=== PATIENT | female | born 1990 | race Caucasian/White ===

== ENCOUNTER 2022-06-15 17:50 | Emergency (ER) | payer OTHER, SELFPAY ==
--- NOTE | 2022-06-15 17:57 | ED.EXTPRO ---
HPI - Extremity Problem General Chief complaint: Extremity Problem,Nontraumatic Stated complaint: left foot has knot on side Source: patient and RN notes reviewed History of Present Illness HPI Narrative: 32-year-old female presents to urgent care with complaints of pain and swelling to the bottom of her left foot. Patient states she noticed it today while at work and felt something poking the bottom of her foot. Patient got she off and noticed there was a lot like a bump on the bottom of her foot with a garcia. Patient denies any injuries. Denies any drainage from the area. Denies any fevers or chills. Some parts of this dictation were generated by voice recognition software and may contain typographical and/or grammatical inaccuracies. Related Data Home Medications Medication Instructions Recorded Confirmed ascorbic acid (vitamin C) 500 mg 06/15/22 tablet (Vitamin C) ferrous sulfate 325 mg (65 mg mg 06/15/22 iron) tablet (FeroSul) lisinopril 06/15/22 progesterone micronized 200 mg mg 06/15/22 capsule sertraline 50 mg tablet mg 06/15/22 Allergies Allergy/AdvReac Type Severity Reaction Status Date / Time No Known Allergies Allergy Verified 06/15/22 18:06 Review of Systems Review of Systems: CONSTITUTIONAL: Denies fever, chills, or sweats. EYES: Denies visual changes, redness, or discharge. ENT: Denies otalgia and sore throat CARDIOVASCULAR: Denies chest pain, palpitations, or edema. RESPIRATORY: Denies cough or dyspnea. GASTROINTESTINAL: Denies abdominal pain, nausea, vomiting, or diarrhea. GENITOURINARY: Denies dysuria or hematuria. SKIN: garcia to bottom of left foot MUSCULOSKELETAL: Denies back pain, joint pain, or myalgia. NEUROLOGIC: Denies headache, numbness, or weakness. PMFSH Comments At the time of my signature, I reviewed and agree with the nursing past medical, surgical, social, and family history. There is no relevant family history pertinent to the patient complaint. Exam Narrative: GENERAL: This is a well-nourished, well-developed patient, in no apparent distress. HEAD: normocephalic, atraumatic. EYES: Sclera clear/white. Vision is grossly intact. EARS: External ears normal, auditory canals clear and without drainage, TMs normal without perforation. Hearing grossly intact. NOSE: External nose normal with no obvious nasal discharge, nares without redness, no rhinorrhea. THROAT: Mucous membranes moist, posterior pharynx clear. NECK: Neck supple, non-tender without lymphadenopathy, masses or thyromegaly. CARDIOVASCULAR: Regular rate RESPIRATORY: No respiratory distress noted SKIN: 1 cm area of swelling to plantar side of left foot with white head. no area of induration or significant erythrema. NEURO: awake, alert, and oriented to person, place and time. There were no obvious focal neurologic abnormalities. Course Course Level of Care: Express Care Visit Vital Signs Vital signs: Vital Signs Temperature 98.4 F 06/15/22 18:05 Pulse Rate 105 H 06/15/22 18:05 Respiratory Rate 16 06/15/22 18:05 Blood Pressure 162/87 H 06/15/22 18:05 Pulse Oximetry 100 06/15/22 18:05 Oxygen Delivery Room Air 06/15/22 18:05 Temperature 98.4 F 06/15/22 18:05 Pulse Rate 105 H 06/15/22 18:05 Respiratory Rate 16 06/15/22 18:05 Blood Pressure 162/87 H 06/15/22 18:05 Pulse Oximetry 100 06/15/22 18:05 Oxygen Delivery Room Air 06/15/22 18:05 Reviewed MDM - Extremity (Nontraumatic) MDM Narrative Medical decision making narrative: Apply a warm compress to the area at least 3x/day for [address] the antibiotic ointment on 2x/day. keep the area clean and dry. Follow up with cyber reverse engineer if symptoms persist after 1 week. Go to the ER with any new or worsening symptoms. Differential Diagnosis Differential diagnosis: Likely other (abscess, cellulitis, cyst) Critical Care Time Critical Care Time Critical Care Time: No Discharge Plan
[2022-06-15 18:05] VITALS: BP 162/87; PULSE 105; RESP 16; TEMP 36.9; O2SAT 100
== END 2022-06-15 18:17 | disposition home or self-care (01) ==
PROVIDERS: Emergency Provider Nurse Practitioner Family; PCP Nurse Practitioner Family
DX: L02.612 Cutaneous abscess of left foot (principal)
CPT/HCPCS: 99213; G0463

== ENCOUNTER 2022-07-05 10:47 | Outpatient (CLI) | payer OTHER, SELFPAY ==
[2022-07-05 11:23] LABS: Hemoglobin 11.6 g/dL (12.0-15.0)
== END 2022-07-05 10:48 | disposition home or self-care (01) ==
LOC: ANHSURGERY 10:52
PROVIDERS: Anesthesiology; PCP Nurse Practitioner Family; Visit Provider Obstetrics & Gynecology
DX: D64.9 Anemia, unspecified (principal); Z01.818 Encounter for other preprocedural examination
CPT/HCPCS: 36415; 85014; 85018

== ENCOUNTER 2022-07-07 00:33 | Day surgery (SDC) | payer OTHER, SELFPAY ==
[2022-06-28 14:59] VITALS: BMI 57.8
--- NOTE | 2022-06-28 15:03 | PC.NURSE ---
Report to the Outpatient Waiting Room, entrance under the green pavilion located off [facility], at time 7:30 on date 07/07/22. Planned Procedure Time: 9:30. Time changes happen often and if your time is changed the preop area will call you the afternoon before. - You and your visitor will be asked to self-screen and do not enter if you have any COVID symptoms. - Only one visitor is requested with a max of two and NO children visitors are allowed at this time. - The patient visitor may be requested to leave or wait in car when not with patient due to distancing restrictions. - A mask is optional within the hospital at this time. Patients may have clear liquids (water, carbonated beverages, clear teas, apple juice) until 3 hours prior to surgery (6:30) with a maximum of 20 ounces. - No food from midnight until time of surgery Take the following medications with a SIP of water the morning of surgery: INHALER IF NEEDED DO NOT STOP ANY OF YOUR OTHER PRESCRIPTION MEDICATIONS PRIOR TO SURGERY EXCEPT THE FOLLOWING Medications to discontinue per physician: VITAMINS/SUPPLEMENTS Date to take last dose: 07/03/22 Please no make-up, nail chinese, hairspray, perfume, deodorant, or body powder the day of surgery. No jewelry (including any body piercings) or valuables the day of surgery, leave them at home. Please take a shower or bath the night before, or the morning of, surgery with an antibacterial soap. Wear comfortable, loose fitting clothing. - Jewelry must be removed prior to entering the operating room. Rings and piercings that are not removed may be cut off. - The hospital will not accept responsibility for valuables. - Please leave all valuables, including medications, at home the day of surgery. If you are going home after surgery, a licensed experienced truck driver must drive you home. - NO public transportation without another adult if you receive anesthesia. - We recommend that an adult stay with you for 24 hours following discharge. - We also recommend that you do not drive, make important decision, drink alcoholic beverages, or take any drugs that were not prescribed by your health care provider for at least 24 hours after your discharge time. Follow any additional instructions given to you from your surgeon. If you or anyone in your household have experienced Covid symptoms in the past week, please notify your surgeon or the nurse liaison at the phone number below for possible testing. Telephone instructions given to ARLYN - WASHINGTON LOPEZ and asked if any additional questions and then verbalized understanding. Patient advised to call surgeon office or pre surgery nurse liaison [phone] if any additional questions.
[2022-07-07] MEDS: ACETAMINOPHEN 500 MG TABLET 1000 MG PO (08:00)
[2022-07-07] MEDS: LACTATED RINGERS 1,000 ML 30 ML IV CONT ×2 (08:00→11:00)
[2022-07-07 09:00] VITALS: BP 135/80; PULSE 96; RESP 16; TEMP 37.6; O2SAT 100
--- NOTE | 2022-07-07 09:08 | WPDANESEPPF ---
Anes - Initial Pre Proc Eval Procedure: Operation Date: 07/07/22 09:30 Proposed Procedures p Hysteroscopy with Endometrial Biopsy and/or Polypectomy - Roula Holden MD Date/Time: 07/07/22 09:08 Surgeon: Roula Holden MD Pre Op Diagnosis: lesion of endometrium Patient Data Age: 32 Gender: F Height: 1.52 m Weight: 134.3 kg Allergies Allergy/AdvReac Type Severity Reaction Status Date / Time No Known Allergies Allergy Verified 06/28/22 14:56 Home Medications Medication Instructions Recorded Confirmed Type albuterol sulfate 90 mcg/actuation 1 puff inhalation QID PRN 06/28/22 06/28/22 History aerosol inhaler Bronchospasm ascorbic acid (vitamin C) 500 mg 500 mg PO DAILY 06/28/22 06/28/22 History tablet esomeprazole magnesium 40 mg 40 mg PO DAILY 06/28/22 06/28/22 History capsule,delayed release ferrous sulfate 325 mg (65 mg 325 mg PO DAILY 06/28/22 06/28/22 History iron) tablet lisinopril 10 mg tablet 10 mg PO DAILY 06/28/22 06/28/22 History progesterone micronized 200 mg 200 mg PO HS 06/28/22 06/28/22 History capsule Patient hx anesthesia problems: none Family hx anesthesia problems: none Results Review: All pre-operative results and documents have been reviewed as part of the pre-operative evaluation. [facility] Social History Social History (System 06/28/22 @ 13:50 by Rima Brantley) Smoking status: Never smoker Alcohol intake: current Alcohol use details: RARE Substance use: current Substance use type: marijuana Other substance usage details: RARE Living arrangements: with family Spiritual care concerns: No Anes - Eval Final PreProcedure Day of Procedure 07/07/22 09:08 Patient weight: super morbidly obese Heart: regular rate and rhythm Lungs: clear to auscultation Airway: Mallampati scale class III Neurological: alert and oriented Last oral intake: >/= 8 hours ASA classification: III Emergent: no Anesthetic plan: proceed Anesthesia type and monitoring: general GIVS (may use LMA if needed) Results Review: All pre-operative results and documents have been reviewed as part of the pre-operative evaluation. Informed Consent: The patient's anesthetic plan and its attendant risks and benefits were discussed with the patient/family/POA. Questions were solicited and answers provided to the satisfaction of the patient/family/POA.
--- NOTE | 2022-07-07 09:39 | PM.IMHP ---
H&P: HPI History of Present Illness Date/Time: 07/07/22 09:39 Chief Complaint: Abnormal uterine bleeding Narrative: 32-year-old female with abnormal uterine bleeding and endometrial lesion. We have agreed to perform hysteroscopy D and C with possible polypectomy. She understands that injuries may occur no surgery. Injuries may result in hospitalization, more surgery, severe illness. She understands risk of infection and hemorrhage. Review of Systems Review of Systems: All systems reviewed & are unremarkable except as noted in HPI and below Constitutional: Constitutional: Denies chills, Denies fatigue, Denies fever(s) and Denies weakness Eyes: Eyes: Denies blurry vision, Denies change in vision, Denies loss of peripheral vision, Denies loss of vision, Denies other visual disturbances and Denies eye pain ENT: Denies vertigo, Denies dizziness, Denies hearing loss, Denies mouth pain, Denies nasal obstruction, Denies neck mass and Denies neck pain Cardiovascular: Cardiovascular: Denies chest pain, Denies diaphoresis, Denies syncope, Denies leg edema and Denies dyspnea Respiratory: Respiratory: Denies chest congestion, Denies cough, Denies hemoptysis, Denies dyspnea and Denies wheezing Gastrointestinal: Gastrointestinal: Denies abdominal pain, Denies constipation, Denies diarrhea, Denies nausea and Denies vomiting Genitourinary: Genitourinary: Denies hematuria, Denies change in libido, Denies nocturia, Denies genital lesions, Denies flank pain and Denies urinary urgency Musculoskeletal: Musculoskeletal: Denies abnormal gait, Denies back pain, Denies myalgias, Denies arthralgias, Denies joint swelling, Denies muscle weakness and Denies neck pain Integumentary/Breasts: Skin/Breast: Denies swelling, Denies breast pain, Denies breast mass, Denies dry skin, Denies nipple discharge, Denies unusual bruising and Denies jaundice Neurologic: Denies Neuro-related abnormal movements, Denies Abnormal speech present, Denies abnormal gait, Denies behavioral changes, Denies confusion, Denies vertigo, Denies dizziness, Denies syncope, Denies loss of vision, Denies memory loss, Denies convulsions and Denies weakness Psychiatric: Psychiatric: Denies abnormal sleep pattern, Denies behavioral changes, Denies change in libido, Denies confusion, Denies depression, Denies anhedonia and Denies memory loss Endocrine: Endocrine: Reports no additional endocrine complaints, Denies change in libido and Denies fatigue Hematologic/Lymphatic: Hematologic/Lymphatic: Reports no additional hematologic/lymphatic complaints Allergic/Immunologic: Allergic/Immunologic: Reports no additional allergic/immunologic complaints and Denies wheezing PENDING SALE TO [facility] Past Medical History Medical History (Updated 07/07/22 @ 09:41 by Roula Holden MD) Asthma GERD (gastroesophageal reflux disease) Hypertension Social History Social History (System 06/28/22 @ 13:50 by Rima Brantley) Smoking status: Never smoker Alcohol intake: current Alcohol use details: RARE Substance use: current Substance use type: marijuana Other substance usage details: RARE Living arrangements: with family Spiritual care concerns: No Meds Home Medications and Allergies Home Medications Medication Instructions Recorded Confirmed Type albuterol sulfate 90 mcg/actuation 1 puff inhalation QID PRN 06/28/22 06/28/22 History aerosol inhaler Bronchospasm ascorbic acid (vitamin C) 500 mg 500 mg PO DAILY 06/28/22 06/28/22 History tablet esomeprazole magnesium 40 mg 40 mg PO DAILY 06/28/22 06/28/22 History capsule,delayed release ferrous sulfate 325 mg (65 mg 325 mg PO DAILY 06/28/22 06/28/22 History iron) tablet lisinopril 10 mg tablet 10 mg PO DAILY 06/28/22 06/28/22 History progesterone micronized 200 mg 200 mg PO HS 06/28/22 06/28/22 History capsule Allergies Allergy/AdvReac Type Severity Reaction Status Date / Time No Known Allergies Allergy Verified 06/28/22
--- NOTE | 2022-07-07 09:41 | WPDHPUPDATE1 ---
History and Physical Update Update Date/Time: 07/07/22 09:41 History and Physical has been reviewed, including an updated exam of the patient. There are NO changes in the patient's condition. Risks, benefits, and alternatives have been discussed and questions answered. Patient agrees to proceed with procedure.
[2022-07-07] MEDS: LIDOCAINE HCL 1% LOCAL INJ 10 ML VIAL INFILTRATE (09:48)
--- NOTE | 2022-07-07 10:23 | P.OP_ITS ---
Procedure Note - Detailed Date of Procedure 07/07/22 Pre-op Diagnosis lesion of endometrium Post-op Diagnosis Other ( endocervical lesion, cystic) Procedure Performed Hysteroscopy D&C, resection of endocervical lesion Surgeon Roula Holden MD Anesthesia MAC Indications abnormal uterine bleeding Findings endocervical cystic lesion anteriorly and posteriorly, small, benign- appearing:normal appearing vulva, vagina, cervix, intrauterine cavity Description of Procedure the patient was taken the operating room. She was prepped and draped in the dorsal lithotomy position after induction of mac anesthesia. A speculum was placed in the vagina. The cervix was grasped with a tenaculum. The cervix was dilated about 1 cm. The hysteroscope was inserted. The intrauterine cavity and endocervix were evaluated. Hysteroscope was withdrawn. endocervical curettage was performed with a small curette, A medium-size curette was used to curettage all the surfaces were within the endometrial cavity. the sample was collected on Telfa and sent to pathology. The hysteroscope was reinserted and the above findings were noted. endocervical cyst does not yet been removed at this point, cutting blade was inserted to remove the intracervical abnormal structures. It was used to resect them. It was hemostatic. Samples were sent to the pathology department. Patient tolerated the procedure well. The speculum and tenaculum were removed. She was taken recovery room in stable condition. Sponge lap and needle counts were correct x2. Estimated Blood Loss 40 Drains No Packing No Pathology Yes Complications No immediate complications Condition Stable Disposition PACU
[2022-07-07 10:30] VITALS: BP 116/96; PULSE 81; RESP 17; TEMP 37.2; O2SAT 100
[2022-07-07 10:45] VITALS: BP 121/76; PULSE 86; RESP 20; O2SAT 95
[2022-07-07 11:00] VITALS: BP 121/73; PULSE 83; RESP 18; O2SAT 97
[2022-07-07] MEDS: fentaNYL CITRATE INJ (*CRX) 100 MCG/2 ML VIAL 25 MCG IV PUSH ×2 (11:00→11:03)
[2022-07-07 11:10] VITALS: BP 139/83; PULSE 78; RESP 16
[2022-07-07 11:40] VITALS: BP 135/69; PULSE 83; RESP 16
== END 2022-07-07 12:05 | disposition home or self-care (01) ==
PROVIDERS: PCP Nurse Practitioner Family; Visit Provider Obstetrics & Gynecology
PROC: 0U5B8ZZ Destruction of Endometrium, Via Natural or Artificial Opening Endoscopic (ICD-10-PCS; CPT 58563; principal; 2022-07-07 09:30)
DX: N84.0 Polyp of corpus uteri (principal); J45.909 Unspecified asthma, uncomplicated; I10 Essential (primary) hypertension; K21.9 Gastro-esophageal reflux disease without esophagitis; Z79.51 Long term (current) use of inhaled steroids; F12.90 Cannabis use, unspecified, uncomplicated; E66.01 Morbid (severe) obesity due to excess calories; Z68.43 Body mass index [BMI] 50.0-59.9, adult
CPT/HCPCS: 58558; 36415; 85014; 85018; 88305; A9270; J1100; J2250; J2405; J2704; J3010; J7120

== ENCOUNTER 2024-03-19 16:25 | Emergency (ER) | payer OTHER, SELFPAY ==
[2024-03-19 16:42] VITALS: BP 137/89; PULSE 85; RESP 20; TEMP 36.2
[2024-03-19 17:04] LABS: BEDSIDEPREGUCG Negative (Negative); EDCOVIDSCREEN Negative (Negative); EDINFLUASCREEN Negative (Negative); EDINFLUBSCREEN Negative (Negative); EDSTREPNEGPOS1 Negative (Negative)
--- NOTE | 2024-03-19 17:16 | ED_ITS ---
HPI - Nausea/Vomiting/Diarrhea General Chief complaint: Nausea/Vomiting/Diarrhea Stated complaint: nausea/diarrhea/throat/achey Time Seen by Provider: 03/19/24 16:50 Source: patient Mode of arrival: ambulatory Limitations: no limitations History of Present Illness HPI Narrative: 33 yo F presents with c/o that she's been sick for about 11 days. everday i have a new sympom . intermittent N/V. cough, congestion. Pt wants covid/flu swabs. No CP or SOB. Afebrile. Period is a few days late. Is trying to get . all systems reviewed and negative except as noted above. Related Data Home Medications Medication Instructions Recorded Confirmed cetirizine 10 mg tablet 10 mg PO DAILY 03/19/24 03/19/24 labetalol 100 mg tablet 100 mg PO BID 03/19/24 03/19/24 Allergies Allergy/AdvReac Type Severity Reaction Status Date / Time No Known Allergies Allergy Verified 07/07/22 09:45 Review of Systems Review of Systems: CONSTITUTIONAL: Denies fever, chills, or sweats. reports fatigue. EYES: Denies visual changes, redness, or discharge. ENT: Denies rhinorrhea, congestion, sore throat, or otalgia. CARDIOVASCULAR: Denies chest pain, palpitations, or edema. RESPIRATORY: Reports cough. Denies dyspnea. GASTROINTESTINAL: Denies abdominal pain . Reports nausea, vomiting. Denies diarrhea. GENITOURINARY: Denies dysuria or hematuria. SKIN: Denies rash or itching. MUSCULOSKELETAL: Denies back pain, joint pain, or myalgia. NEUROLOGIC: Denies headache, numbness, or weakness. PSYCHIATRIC: Denies anxiety or depression. All other systems reviewed are negative, except as documented in HPI. [facility] Past Medical History Medical History (Updated 03/19/24 @ 17:11 by Shantel Melo NP) Asthma GERD (gastroesophageal reflux disease) Hypertension Social History Social History (System 06/28/22 @ 13:50 by Rima Brantley) Smoking status: Never smoker Alcohol intake: current Alcohol use details: RARE Substance use: current Substance use type: marijuana Other substance usage details: RARE Living arrangements: with family Gender identity (if verbalized by the patient): Female Sexual Orientation (if Verbalized by the Patient): Straight or Heterosexual Spiritual care concerns: No Comments At time of signature, agree with nursing past medical, surgical, social and family history. There is no relevant family history pertinent to the presenting complaint. Exam Narrative: GENERAL: This is a well-nourished, well-developed patient, in no apparent distress. HEAD: normocephalic, atraumatic. EYES: PERRL. Sclera clear/white. Vision is grossly intact. EARS: External ears normal, auditory canals clear and without drainage, TMs normal without perforation. Hearing grossly intact. NOSE: External nose normal with no obvious nasal discharge, nares without redness, no rhinorrhea. THROAT: Mucous membranes moist, posterior pharynx clear. NECK: Neck supple, non-tender without lymphadenopathy, masses or thyromegaly. CARDIOVASCULAR: Regular rate and rhythm without murmurs, gallops, or rubs. RESPIRATORY: Clear to auscultation. Breath sounds equal bilaterally. No wheezes, rales, or rhonchi. GASTROINTESTINAL: Abdomen soft, non-tender, nondistended. Bowel sounds are active. No hepato-splenomegaly, or palpable masses. No guarding. SKIN: warm, Dry, intact with no suspicious lesions or rash, good texture and turgor. NEURO: awake, alert, and oriented to person, place and time. There were no obvious focal neurologic abnormalities. EXTREMITIES: No joint tenderness, effusion, or edema noted. Course Course Level of Care: Express Care Visit Vital Signs Vital signs: Vital Signs Temperature 36.2 C L 03/19/24 16:42 Pulse Rate 85 03/19/24 16:42 Respiratory Rate 20 03/19/24 16:42 Blood Pressure 137/89 03/19/24 16:42 Oxygen Delivery Room Air 03/19/24 16:42 Temperature 36.2 C L 03/19/24 16:42 Pulse Rate 85 03/19/24 16:42 Respiratory Rate 20 03/19/24 16:42 Blood Pressure 137/89 03/19/24 16:42 Oxygen Delivery Room Air 03/19/24 16:42 reviewed MDM - Nausea/Vomiting/Diarrhea MDM Narrative Medical decision making narrative: neg covid, influenza, strep test. preg test neg. Pt well appearing. Will give abx due to duration of cough. has appt with PCP in 2 days. Patient is aware of diagnosis, understands and agrees to treatment plan. Anticipatory guidance given. Patient agrees to follow-up as directed and is aware of reasons to seek care at the emergency department. Portions of this record may have been created with voice recognition software Differential Diagnosis Differential diagnosis: Likely gastroenteritis Lab Data Labs: Lab Results 03/19/24 Range/Units 16:38 POC Urine HCG, Qual Negative (Negative) POC Influenza A Ag Negative (Negative) POC Influenza B Ag Negative (Negative) POC SARS CoV-2 Ag Negative (Negative) POC Grp A Strep Screen Negative (Negative) Discharge Plan Discharge Clinical Impression: Nausea & vomiting, Cough Patient Disposition: Home, Self-Care Condition: Stable Instructions: Antibiotic Form, Acute Nausea and Vomiting (ED), Acute Cough (ED) Additional Instructions: Your covid, influenza and strep test were negative today. Take medications as prescribed. Drink at least 64 ounces of water a day. Follow up at your scheduled doctor's appointment. If you have severe abdominal pain or concern for dehydration go to the ER. Prescriptions: New azithromycin 250 mg tablet See Rx Instructions .ROUTE .COMPLEX Qty: 6 0RF Rx Instructions: For 250 mg dose pack: take 500 mg today (day 1), then 250 mg for 4 days (days 2-5) benzonatate 200 mg capsule 200 mg PO TID PRN (Reason: cough) Qty: 20 0RF ondansetron 4 mg tablet,disintegrating 4 mg PO Q8H PRN (Reason: nausea and vomiting) Qty: 12 0RF No Action cetirizine 10 mg tablet 10 mg PO DAILY labetalol 100 mg tablet 100 mg PO BID Follow-up/Referrals: Sukumar,Jenifer Aguero APRN [Primary Care Provider] - Time of Disposition: 17:05
== END 2024-03-19 17:25 | disposition home or self-care (01) ==
PROVIDERS: Emergency Provider Nurse Practitioner Family; PCP Nurse Practitioner Adult Health
DX: R11.2 Nausea with vomiting, unspecified (principal); R05.9 Cough, unspecified; Z20.822 Contact with and (suspected) exposure to COVID-19; I10 Essential (primary) hypertension; J45.909 Unspecified asthma, uncomplicated; K21.9 Gastro-esophageal reflux disease without esophagitis
CPT/HCPCS: 81025; 87081; 87426; 87804; 87880; 99213; G0463